=== PATIENT | female | born 1980 | race Caucasian/White ===

== ENCOUNTER → 2024-05-30 | Outpatient (CLI) | payer OTHER, SELFPAY ==
--- NOTE | 2024-05-30 14:06 | US_ITS ---
PROCEDURE: PELVIC W/ TRANSVAGINAL REASON FOR EXAM: Uterine fibroids. TECHNIQUE: Transabdominal and transvaginal pelvic ultrasound COMPARISON: None. FINDINGS: Measurements: Uterus: 10.1 cm x 6.2 cm x 4.7 cm with a volume of 153.25 mL Endometrial Thickness: 4 mm Right Ovary: 1.1 cm x 1.3 cm x 1.1 cm with a volume of 0.77 mL. Left Ovary: 3.7 cm x 3.6 cm x 2.5 cm with a volume of 17.49 mL. TRANSABDOMINAL: Uterus: The uterus is enlarged. 2, fibroids are seen. The larger fibroid measures 3.3 cm x 3.2 cm x 3 cm. Endometrium: Hyperechoic Right ovary: Normal size and echotexture. Left ovary: There is a 2.8 cm x 3 cm x 2.2 cm cyst. No large pelvic mass identified. Transvaginal sonography was performed to better visualize the endometrium. TRANSVAGINAL: Uterus: Anteverted. Uterine fibroids as described. Endometrium: Normal echotexture. Right ovary: Normal size and echotexture. Left ovary: 2.8 cm x 3 cm x 2.2 cm cyst. Other adnexal findings: None. Cul-de-sac: No free intraperitoneal fluid identified. No tenderness. US/Pelvic w/ Transvaginal IMPRESSION: Enlarged fibroid uterus. Left ovarian cyst. Reading Location: [place] [id number]
== END | disposition home or self-care (01) ==
LOC: US 14:03
PROVIDERS: Referring Provider Advanced Practice Midwife; Visit Provider Advanced Practice Midwife
DX: R10.2 Pelvic and perineal pain (principal); D25.9 Leiomyoma of uterus, unspecified
CPT/HCPCS: 76830; 76856

== ENCOUNTER 2024-08-20 05:32 | Day surgery (SDC) | payer OTHER, SELFPAY ==
[2024-08-19 08:00] LABS: Hematocrit 39.9 % (37-47); Hemoglobin 13.7 g/dL (12.0-15.0); Mean Corp Hgb Conc 34.3 g/dL (32-36); Mean Corpuscular Hgb 31.4 pg (27.0-32.0); Mean Corpuscular Volume 91.5 fL (81-99); Mean Platelet Vol. 8.7 fl (6.2-12.0); Platelet Count 303 K/mm3 (150-450); RBC Distribution Width CV 13.2 % (11.6-14.6); RBC Distribution Width SD 44.1 fl (35.1-43.9); Red Blood Count 4.36 M/mm3 (4.2-5.4); White Blood Count 9.3 K/mm3 (4.4-11.0)
[2024-08-19 08:30] LABS: Magnesium 2.4 mg/dL (1.5-2.2)
[2024-08-20] VITALS (11 sets, daily range): BP systolic 107–127; BP diastolic 60–97; PULSE 60–90; RESP 16–18; TEMP 36.1–37.3; O2SAT 98–100; BMI 29.1
[2024-08-20 06:43] LABS: Internal QC Validated? YES +Cl - CLEAR BKGD; Pregnancy, Urine Negative Negative
--- NOTE | 2024-08-20 06:49 | PCM.HP.BLA ---
History and Physical Date of Admission: 08/20/24 Intake Vital Signs 06/24/2508:33 07/18/2512:48 Height 5 ft 2 in 5 ft 2 in Weight: 160 lb 161 lb 2 oz BMI 29.2 29.5 BP 132/89 H 133/91 H Intake Visit Reasons: TRH BS cysto Emotionally Impaired Teacher Required: No Is patient in pain?: No Allergies Penicillins Allergy (Mild, Verified 07/18/24 13:48) Hivesibuprofen Adverse Reaction (Intermediate, Verified 07/18/24 13:48) tachycardiameloxicam (From Mobic) Adverse Reaction (Intermediate, Verified 07/18/24 13:48) tachycardia Medications ?Medication ?Instructions ?Recorded ?Confirmed ?Type cetirizine 10 mg tablet (Zyrtec) 10 mg PO QDAY PRN 06/24/24 07/18/24 History cholecalciferol (vitamin D3) 50 50 mcg PO QDAY 06/24/24 07/18/24 History mcg (2,000 unit) capsule lactobacillus combination no.4 3 3,000 mmu cells PO QDAY 06/24/24 07/18/24 History billion cell capsule (Probiotic) magnesium oxide 500 mg capsule 500 mg PO QDAY 06/24/24 07/18/24 History norethindrone acetate 5 mg tablet 5 mg PO QDAY 06/24/24 07/18/24 History omega-3 fatty acids 1,000 mg 1,000 mg PO QDAY 06/24/24 07/18/24 History capsule valacyclovir 500 mg tablet 500 mg PO QDAY #30 tabs 07/18/24 07/18/24 Rx (Valtrex) Post menopausal: No Patient : No : No PFSH Medical History Fibroid Enlarged uterus Ovarian cyst Genital herpes Surgical History S/P eye surgery Family History Mother Breast cancerFather DiabetesGrandmother Cancer of kidney CVA (cerebral vascular accident) Social History Smoking Status: Former smoker alcohol intake: current details: occasionaly substance use type: does not use caffeine: Yes what type of physical activity do you participate in: aerobics and weight training frequency: 3-4 times per week seatbelt use: always do you feel safe at home: Yes additional social history: - Manuel HPI TRH BS cysto Details: DORITA QUIROS is a 44 year old who is scheduled for a total robotic hysterectomy, bs, cysto due to fibroid uterus that is compressing her tailbone causing low back pain. 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 Due to insurance reasons she was referred over to us. She has tried mirena IUD (cuased worse pain and bleeding), combination ocp's, and now progesterone only ocps, which she takes continuously and does not have periods. She states had an EMB with [facility] , joan Roa. ultrasound is as follows: REASON FOR EXAM: Uterine fibroids. TECHNIQUE: Transabdominal and transvaginal pelvic ultrasound COMPARISON: None. FINDINGS: Measurements: Uterus: 10.1 cm x 6.2 cm x 4.7 cm with a volume of 153.25 mL Endometrial Thickness: 4 mm Right Ovary: 1.1 cm x 1.3 cm x 1.1 cm with a volume of 0.77 mL. Left Ovary: 3.7 cm x 3.6 cm x 2.5 cm with a volume of 17.49 mL. TRANSABDOMINAL: Uterus: The uterus is enlarged. 2, fibroids are seen. The larger fibroid measures 3.3 cm x 3.2 cm x 3 cm. Endometrium: Hyperechoic Right ovary: Normal size and echotexture. Left ovary: There is a 2.8 cm x 3 cm x 2.2 cm cyst. No large pelvic mass identified. Transvaginal sonography was performed to better visualize the endometrium. TRANSVAGINAL: Uterus: Anteverted. Uterine fibroids as described. Endometrium: Normal echotexture. Right ovary: Normal size and echotexture. Left ovary: 2.8 cm x 3 cm x 2.2 cm cyst. Other adnexal findings: None. Cul-de-sac: No free intraperitoneal fluid identified. No tenderness. US/Pelvic w/ Transvaginal IMPRESSION: Enlarged fibroid uterus. Left ovarian cyst History 1 Elective abortions Hx Para 0 Spontaneous abortions 1 Hx # Term Pregnancies Ectopic pregnancies Hx # Pregnancies Multiple births # of living children 0 ROS Const ROS Unobtainable: All systems reviewed & are unremarkable except as noted in H Resp Resp: Reports system reviewed and no additional complaints, except as documented; Denies cough GI GI: Reports as per HPI Psych Psych: Reports system reviewed and no additional complaints, except as documented Exam Const General: cooperative, healthy appearing, comfortable and no acute distress Resp Effort & Inspection: normal respiratory effort Skin General: no rashes or lesions noted Psych Appearance: grossly normal Speech and Movement: speech and movement normal Coding Level of Care Code Off vis,est,level 4 Diagnoses Enlarged uterus N85.2 Fibroid D21.9 Assessment and Plan Assessment and Plan (1) Enlarged uterus: Status: Acute (2) Fibroid: Status: Acute Plan: After discussing the patient's diagnosis and treatment plan options, patient wishes to proceed with surgical management. I have discussed with the patient the risks, benefits, and alternatives of the procedure which include but are not limited to risks of anesthesia, bleeding, infection, possible damage to bowel, bladder, or surrounding vasculature which could lead to additional surgery to evaluate any complications. Patient agrees to procedure and wishes to proceed. ACOG/uptodate references given for additional information regarding procedure. plan total robotic hysterectomy, bs, cysto
--- NOTE | 2024-08-20 06:50 | PCM.DC ---
Discharge Instructions Diet Discharge Diet: No restrictions DC O2, CPAP, BIPAP needs Home O2 Discharge instructions: No Dressing / Incision Discharge Activity: May Shower May resume sexual activity in: 8 weeks Weight Bearing Status: Full weight bearing Lifting Restrictions: 10 pounds for 2 weeks Dressing / Incision Call your doctor if your incision/area has: Continuous Slow Oozing, Sudden Increased Bleeding, Increased Pain/ Swelling, Increased Redness and Foul Smelling Discharge Call your doctor if you observe: Fever of 101 or Higher, Using more than 1 pad per hour, Shortness of breath, Chest pain and Uncontrolled pain Suture Line Care: Avoid Pulling/Pushing and Avoid Pinching/Bending Remove Dressing in: 1 week (if present) Cleanse incision/area with: Soap & Water and Keep Dressing Clean & Dry Follow Up Care Please Follow Up With: Twila Hillman DO When: Call to make an appointment with your doctor for a postop visit in 2 and 6 weeks Test Results: Test results from this visit will be discussed in further detail at your follow-up appointment, if applicable. Discharge Plan Admission Primary Reason for Your Visit: hysterectomy Attending Provider: Twila Hillman Primary Care Provider: Care Physician,No Primary Instructions Print Language: Turkmen Discharge Orders/Prescriptions Prescriptions: New ibuprofen 800 mg tablet 800 mg PO Q8H PRN (Reason: pain) Qty: 30 0RF oxycodone-acetaminophen [Percocet] 5-325 mg tablet 1 tab PO Q4H PRN (Reason: pain) 7 Days Qty: 20 0RF Continued cholecalciferol (vitamin D3) 50 mcg (2,000 unit) capsule 50 mcg PO QDAY Probiotic 3 billion cell capsule 3,000 mmu cells PO QDAY Rx Instructions: administer with a meal omega-3 fatty acids 1,000 mg capsule 1,000 mg PO BID cetirizine [Zyrtec] 10 mg tablet 10 mg PO QDAY magnesium oxide 500 mg capsule 500 mg PO QDAY valacyclovir [Valtrex] 500 mg tablet 500 mg PO QDAY Qty: 30 4RF aspirin 325 mg capsule 325 mg PO Q6H PRN (Reason: pain) acetaminophen [Tylenol] 325 mg tablet 650 mg PO Q4H PRN (Reason: pain) Collagen Plus Vitamin C 125-740 mg capsule 1 cap PO DAILY cimetidine 200 mg tablet 200 mg PO DAILY PRN (Reason: heartburn) Rx Instructions: administer with meals docusate sodium [Colace] 100 mg capsule 100 mg PO DAILY Discontinued norethindrone acetate 5 mg tablet 5 mg PO QDAY Other Ambulatory Orders: ,Urine (Routine) Timeframe: 20240820 Facility: [facility] - Location: Laboratory Ordered By: Dr. Twila Hillman Referrals / Follow Up: Care Physician,No Primary [Primary Care Provider] - Disposition Disposition (needs filled in before D/C Order can be placed): Home, Self Care
[2024-08-20] MEDS: Phenazopyridine 95 MG Tablet 190 MG PO (07:06)
[2024-08-20] MEDS: Celecoxib 200 MG Capsule 400 MG PO (07:07)
[2024-08-20] MEDS: Scopolamine 1mg/72hr Patch 1 PATCH TD (07:07)
[2024-08-20] MEDS: Acetaminophen 500 MG Tablet 1000 MG PO (07:07)
[2024-08-20] MEDS: Gabapentin 600 MG Tablet PO (07:07)
[2024-08-20] MEDS: Magnesium 1 GM over 15 mins IV (07:08)
[2024-08-20] MEDS: Lactated Ringers 1,000 ML 40 ML IV (07:08)
[2024-08-20] MEDS: Clindamycin 900 MG/50 ML BAG 75 MG IV (07:09)
--- NOTE | 2024-08-20 07:21 | PCM.PRE.AN2 ---
ASA Classification* ASA Classification ASA Classification: 2 Assessment & Plan Anesthesia* Anesthesia Assessment Anesthesia Assessment: Discussed sedation and/or anesthesia options, risks, benefits, and alternatives with patient/parents/legal guardian/POA. Questions invited. The patient/parents/legal guardian/POA seems to understand and agrees to proceed with anesthesia plan. Reviewed the physical assessment, medical history, allergy history and patient home medications list prior to surgery/procedure/anesthetic and documented any changes. Performed airway and anesthesia risk assessments. Anesthesia Type Anesthesia Type: General History Source History Obtained from:: Patient and Chart Anesthesia Focused Assessment* Temperature: 98.5 F Pulse Rate: 86 Blood Pressure: 118/85 Respiratory Rate: 16 Pulse Ox: 99 Oxygen Delivery Method: Room Air Airway Assessment Mouth opens: >3 cm Mallampati Score: II Teeth Condition: Intact Neck Range of motion (ROM): Full ROM Focused Labs Anesthesia Preop lab: CBC WBC 9.3 K/mm3 (4.4-11.0) 08/19/24 07:24 08/19/24 RBC 4.36 M/mm3 (4.2-5.4) 08/19/24 07:24 08/19/24 Hgb 13.7 g/dL (12.0-15.0) 08/19/24 07:24 08/19/24 Hct 39.9 % (37-47) 08/19/24 07:24 08/19/24 Plt Count 303 K/mm3 (150-450) 08/19/24 07:24 08/19/24 CHEMISTRY Magnesium 2.4 mg/dL (1.5-2.2) H 08/19/24 07:24 08/19/24 COAG Urine Test Negative Negative 08/20/24 06:00 08/20/24 Pre-Assessment Diagnosis/Proposed Procedure Planned Operative Procedure(s): LAP TOTAL HYSTERECTOMY,BILAT SALPINGECTOMY CYSTO Anesthesia History Anesthesia History - surgical physician assistant: Anesthesia History - surgical physician assistant Hx Hospitalization No 08/06/24 10:01 Any Problems With Anesthesia No 08/06/24 10:01 Cholinesterase deficiency No 08/06/24 10:01 You/Your Family Experience No 08/06/24 10:01 fever (hyperthermia) with Relationship Recent Exposure to Contagious No 08/20/24 06:54 Disease Does patient have nerve No 08/06/24 10:01 stimulator Patient instructed to have device shut off --Does patient have Pacemaker No 08/20/24 06:54 or ICD? When Was Last Pacemaker Check QUESTION #4 FULL TEXT: You/Your Family Experience fever (hyperthermia) with Anesthesia Last Oral Intake Last Oral intake: Last Oral Intake NPO since 05:15 08/20/24 06:54 Meds taken in AM with sips of water? Meds patient instructed to take am of surgery PONV PONV - surgical physician assistant: PONV - surgical physician assistant Female Yes 08/06/24 10:01 HX of Motion Sickness Yes 08/06/24 10:01 HX of N/V After Surgery No 08/06/24 10:01 Non-Smoker Yes 08/06/24 10:01 Duration of Surgery greater Yes 08/06/24 10:01 than 60 minutes Number of Risk Factors 4 08/06/24 10:01 PONV Score Severe Risk 08/06/24 10:01 Height & Weight Height & Weight: Anesthesia: Height & Weight Height 5 ft 2 in 08/20/24 06:54 Weight: 72.2 kg 08/20/24 06:54 Body Mass Index (BMI) 29.1 08/20/24 06:54 Respiratory Assessment Respiratory Assessment - surgical physician assistant: Respiratory Tract Infection Hx - surgical physician assistant Hx Respiratory Tract Infection No 08/06/24 10:01 STOP Sleep Apnea STOP Sleep Apnea - surgical physician assistant: STOP Sleep Apnea - surgical physician assistant Hx Hypertension No 08/06/24 10:01 Hx Sleep Apnea No 08/06/24 10:01 CPAP BIPAP Do you snore loudly (louder No 08/06/24 10:01 than talking or can be heard Do you often feel tired/ No 08/06/24 10:01 fatigued/ sleepy during daytime? Has anyone observed you stop No 08/06/24 10:01 breathing during sleep? STOP Results Negative 08/06/24 10:01 QUESTION #5 FULL TEXT : Do you snore loudly (louder than talking or can be heard through closed doors)? Tobacco Use History Tobacco Use History - surgical physician assistant: Tobacco Use History - surgical physician assistant Tobacco Use Smoking Status Former smoker 08/06/24 10:01 Hx Tobacco Use No 08/06/24 10:01 Years Smoking Packs Smoked per Day Smoking Cessation Date was No - quit smoking greater 08/06/24 10:01 within the last 15 years than 15 years ago Hx Smoking Cessation Date 04/10/04 08/06/24 10:01 Hx Smoking Cessation No 08/06/24 10:01 Counseling Hematologic Medial History Hematologic Hx - surgical physician assistant: Hematologic Medical Hx - ophthalmic asst Hx of Blood Transfusion No 08/06/24 10:01 Hx of Transfusion in last 3 No 08/06/24 10:01 Months Date of Last Transfusion (if within last 3 months) Ever experience any problems No 08/06/24 10:01 with transfusion(s)? Specify any problems Hx of Preganancy in last 3 No 08/06/24 10:01 Months Nurse Filling Out Transfusion DSCHRIBER 08/06/24 10:01 & Questions: Date: 08/06/24 08/06/24 10:01 Time: 10:02 08/06/24 10:01 Patient unable to answer at this time (ie. confused, unrespo /Reproduction History /Reproductive History - surgical physician assistant: /Reproductive Hx- surgical physician assistant Hx Now No 08/06/24 10:01 Gestational Age (in weeks): EDC: Hx Hx Para Hx Section SAB No 08/06/24 10:01 Active Medications Active Medications: Current Medications Generic Name Dose Route Start Last Admin Trade Name Freq PRN Reason Stop Dose Admin Acetaminophen 1,000 mg 08/20/24 07:30 Acetaminophen 500 Mg Tablet PO 08/20/24 07:31 PREOP ONE Celecoxib 400 mg 08/20/24 07:30 Celecoxib 200 Mg Capsule PO 08/20/24 07:31 PREOP ONE Gabapentin 600 mg 08/20/24 07:30 Gabapentin 600 Mg Tablet PO 08/20/24 07:31 PREOP ONE Lactated Ringer's 1,000 mls @ 40 mls/hr 08/20/24 07:30 IV .Q25H [id number] Clindamycin Phosphate 900 mg in 50 mls @ 75 mls/hr 08/20/24 07:30 Cleocin IV 08/20/24 08:09 INTRAOP ONE Gentamicin Sulfate 296 mg/ 57.4 mls @ 100 mls/hr 08/20/24 07:30 Dextrose IV 08/20/24 08:04 INTRAOP ONE Lactated Ringer's 1,000 mls @ 70 mls/hr 08/20/24 07:30 IV .[id number] Magnesium Sulfate 1 gm/ 102 mls @ 408 mls/hr 08/20/24 07:30 Dextrose IV 08/20/24 07:44 INTRAOP ONE Insulin Human Lispro 0 unit 08/20/24 07:30 Insulin Lispro 100 Unit/Ml Insuln.Pen SC Q4H PRN PRN BG >/= 180, SEE PROTOCOL Protocol Ondansetron HCl 4 mg 08/20/24 07:30 Ondansetron 4 Mg/2 Ml Vial IV 08/20/24 07:31 INTRAOP ONE Phenazopyridine HCl 190 mg 08/20/24 07:30 Phenazopyridine 95 Mg Tablet PO 08/20/24 07:31 PREOP ONE Scopolamine HBr 1 patch 08/20/24 07:30 Scopolamine 1mg/72hr Patch TD 08/20/24 07:31 PREOP ONE PFSH Medical History Mycosis fungoides Marijuana use Alcohol use Restless legs Injury of back Back pain Constipation Heartburn Former smoker History of irregular heartbeat Heart murmur Ovarian cyst Enlarged uterus Fibroid Genital herpes Home Medications ?Medication ?Instructions ?Recorded ?Last Taken ?Type cetirizine 10 mg tablet (Zyrtec) 10 mg PO QDAY ALLERGIES 06/24/24 08/19/24 History cholecalciferol (vitamin D3) 50 50 mcg PO QDAY 06/24/24 08/19/24 History mcg (2,000 unit) capsule lactobacillus combination no.4 3 3,000 mmu cells PO QDAY 06/24/24 08/19/24 History billion cell capsule (Probiotic) magnesium oxide 500 mg capsule 500 mg PO QDAY 06/24/24 08/19/24 History omega-3 fatty acids 1,000 mg 1,000 mg PO BID 06/24/24 Unknown History capsule valacyclovir 500 mg tablet 500 mg PO QDAY #30 tabs 07/18/24 Unknown Rx (Valtrex) acetaminophen 325 mg tablet 650 mg PO Q4H PRN pain 08/06/24 Unknown History (Tylenol) ascorbic acid 125 mg-collagen, 1 cap PO DAILY 08/06/24 08/19/24 History hydrolyzed 740 mg capsule (Collagen Plus Vitamin C) aspirin 325 mg capsule 325 mg PO Q6H PRN pain 08/06/24 08/13/24 History cimetidine 200 mg tablet 200 mg PO DAILY PRN heartburn 08/06/24 08/20/24 History docusate sodium 100 mg capsule 100 mg PO DAILY 08/06/24 08/19/24 History (Colace) ibuprofen 800 mg tablet 800 mg PO Q8H PRN pain #30 tabs 08/20/24 Unknown Rx oxycodone-acetaminophen 5 mg-325 1 tab PO Q4H PRN pain 7 days #20 08/20/24 Unknown Rx mg tablet (Percocet) tabs Allergy/AdvReac Type Severity Reaction Status Date / Time Penicillins Allergy Mild Hives Verified 08/06/24 09:55 ibuprofen AdvReac Intermediate tachycardia Verified 08/06/24 09:55 meloxicam (From Mobic) AdvReac Intermediate tachycardia Verified 08/06/24 09:55 Family History Mother Breast cancer Father Diabetes Grandmother Cancer of kidney CVA (cerebral vascular accident) Surgical History Hx of wisdom tooth extraction S/P eye surgery Social History Smoking Status: Former smoker alcohol intake: current details: occasionaly substance use type: does not use caffeine: Yes what type of physical activity do you participate in: aerobics and weight training frequency: 3-4 times per week seatbelt use: always do you feel safe at home: Yes additional social history: - Manuel Review of Systems (Anesthesia) ROS Narrative System reviewed and no additional complaints, except as documented. Physical Exam Resp normal respiratory effort Cardio regular rate and regular rhythm Back/Spine normal ROM Neuro oriented x3 and moves all extremities
[2024-08-20] MEDS: WATER IV (07:30)
[2024-08-20] MEDS: DEXTROSE 5% IV (07:30)
[2024-08-20] MEDS: GENTAMICIN IV (07:30)
--- NOTE | 2024-08-20 07:30 | UT_PTH ---
PATIENT: DORITA QUIROS LOC: [facility] [place] U#:[id number] AGE/SX: 44/F ROOM: RE08/20/[address]: Dr. Twila Hillman DO : 1980 BED: DIS: 08/20/2024 SPEC #: [id number] RECD: 08/20/24 10:48 STATUS: SATNAM ANA #: [id number] CYDNEY: 08/20/24 07:[address]: Twila Hillman DEPT: SURGICAL PATHOLOGY RECD BY: Ruben Arias ENTERED: 08/20/24 11:04 SP TYPE: UTERUS OTHR DR: No Primary Care Phys Tissues: A - Uterus, NOS B - Labium, NOS Procedures: Surgery Specimen Level IV Surgery Specimen Level V HEADER OPERATION: Laparoscopic total robotic hysterectomy, bilateral salpingectomy, cystoscopy, right labia biopsy PRE-OP DIAGNOSIS: Enlarged uterus, fibroid TISSUE SUBMITTED: A- Uterus, cervix, bilateral fallopian tubes, B- Right labia biopsy MICROSCOPIC DIAGNOSIS A. Uterus, cervix, bilateral fallopian tubes, hysterectomy and bilateral salpingectomy: * Cervix: Benign squamous epithelium and endocervical glandular tissue * Endometrium: Inactive endometrium * Myometrium: Leiomyomata (intramural, submucosal, and subserosal) * Bilateral fallopian tubes: Benign fallopian tubes with benign paratubal cyst B. Skin, right labia, shave biopsy: * Intradermal melanocytic nevus MICROSCOPIC DESCRIPTION Slides are reviewed. GROSS DESCRIPTION A. Received in formalin in a container labeled with the patient's name, date of , and uterus, cervix, bilateral fallopian tubes is a hysterectomy specimen with attached cervix and bilateral attached fimbriated fallopian tubes. The fallopian tubes are amputated, and the uterus is 139.4 g and 9.7 cm from fundus to ectocervix, 6.0 cm from cornu to cornu, and 5.8 cm from anterior to posterior. The serosa is baltazar-pink, smooth, and glistening with multiple underlying possible subserosal nodules. The previously disrupted baltazar-pink ectocervix is 3.3 x 2.9 cm with a 1.0 cm slitlike os. The specimen is bivalved to reveal a 3.5 cm in length by 1 cm in diameter endocervical canal with multiple nabothian cysts measuring up to 0.5 cm in greatest dimension. The linear endometrial cavity measures 2.6 cm in length by 0.7 cm in width. The posterior endometrial cavity is notable for a 0.8 x 0.8 x 0.6 cm baltazar-pink possible polyp which appears confined to the mucosa. The red-baltazar, smooth endometrium is 0.1 cm in thickness. The baltazar-pink myometrium exhibits a nodular and coarse trabecular pattern measuring up to 2.7 cm in thickness. There are multiple baltazar-pink, intramural, submucosal, and subserosal myometrial nodules within the anterior and posterior myometrium ranging from 0.6 x 0.5 x 0.5 cm to 3.2 x 3.0 x 2.5 cm. The largest 2 nodules exhibit a leaf-like pattern, and the remaining are baltazar-pink and whorled. No hemorrhage or necrosis is identified. The right fimbriated fallopian tube is 4 cm in length by 0.6 cm in diameter, and the left fimbriated fallopian tube is 4.5 x 0.6 cm. The serosa and fimbriated ends of each are within normal limits. Sectioning of each reveals a pinpoint lumen. Mash Grinder sections:A1. Anterior cervix with anterior serosal shavesA2. Posterior cervix with posterior serosal shavesA3. Anterior endomyometrium with nodules (superficial sections)A4. Posterior full-thickness section with possible polypA5. Remainder of posterior polyp with superficial endomyometrium with nodulesA6-7. Sampled myometrial nodulesA8. Right fallopian tubeA9. Left fallopian tube B. Received in formalin in a container labeled with the patient's name, date of , and right labia biopsy is an unoriented and irregular skin shave measuring 1.0 x 0.3 cm with a depth of 0.1 cm. The baltazar-pink epidermis is notable for a white-baltazar and rubbery nodule measuring 0.7 x 0.5 x 0.4 cm, focally abutting the peripheral margin. The deep resection margin is inked green, and it is trisected to reveal that the nodule exhibits homogenous baltazar and glistening surfaces that abut the deep margin. Submitted entirely in B1. [facility] 08-20-2024 CPT:64007,73061
[2024-08-20 07:35] LABS: Bedside Glucose 120 mg/dL (74-106)
[2024-08-20] MEDS: Bupivacaine 0.25% 30 ML Vial (08:00)
--- NOTE | 2024-08-20 09:02 | PCM.OPRPT ---
Problems Associated Problem List Diagnoses (1) Enlarged uterus: (2) Fibroid: Multi Select Codes Urinary/Genital Urinary/Genital CPT Codes: 49785 Cystoscopy and 87270 TLH+BS/O <250gr uterus Operative Report (Standard) Operative Information Date of Procedure: 08/20/24 Pre-Operative Diagnosis: fibroid uterus, low back pain, menorrhagia Post-Operative Diagnosis: fibroid uterus, low back pain, menorrhagia, right labial skin tag Surgery/Procedure Performed: total robotic hysterectomy, bilateral salpingectomy, cystoscopy, removal of right labial skin tag manager quantitative: Yes Dental Assisting Instructor: Kia Stewart Tasks completed by bindery library technical assistant: Closing, Trocar, Retracting and Other (irrigation ) Additional drilling assistant?: No Type of Anesthesia: General RN Documented Start/Stop Times: Operation Date: 08/20/24 07:30 Case Time Into Pre-Op 08/20/24 05:44 Out of Pre-Op 08/20/24 07:27 Anesthesia Start 08/20/24 07:30 Into Room 08/20/24 07:30 Procedure Start 08/20/24 08:08 Procedure Start Time: 08:08 Procedure Stop Time: 09:05 Select all DRAINS/GRAFTS/IMPLANTS that apply: None Estimated Blood Loss: 10cc Specimen collected: Yes Description of specimen(s) removed: uterus, cerivx, bilateral fallopian tubes,. right labial skin tag Description of surgery: Reason for surgery: This is a 44-year-old G1,0 who presented to my office with history of low back pain, fibroid uterus, and menorrhagia. The planned procedure is for a robotic hysterectomy the risks benefits and alternatives were discussed with the patient the patient had a clear understanding of the procedure and a consent form was signed. Procedure: The patient was placed in the dorsal low lithotomy position and prepped and draped in the normal sterile fashion both abdominally and in the perineum. Her legs were placed in stirrups a Engel catheter was inserted into the urethra without difficulty. A right labial skin tag was noted. This was grasped with pick ups and excised using eckert scissors and reapproximated with 2 interrupted figure of 8 4-0 monocryl suture. A weighted speculum was placed in the vagina and a single-tooth tenaculum was used to grasp the anterior lip of the cervix. An 48domain uterine manipulator was inserted through the cervix without complication. It was then tied into place at the 2 and 10:00 locations on the cervix. Gloves were changed and attention was turned towards the abdomen. Approximately 23 cm above the pubic symphysis in the midline, and after Marcaine injection, a 8 mm incision was made. An 8 mm trocar was inserted through the laparoscope, then inserted into the abdomen under direct visualization using the laparoscope. Good abdominal placement was noted and no complications were appreciated. An air seal device was utilized to create pneumoperitoneum. At 12 cm lateral to the midline on the left and right sides 8 mm accessory ports were placed. Next a left upper quadrant 8 mm drilling assistant port site was placed. The patient was placed in steep Trendelenburg position. The robot was docked. The uterus was noted to be enlarged with a posterior intramural fibroid occupying the posterior cul-de-sac. The hysterectomy was initiated first by taking down the round ligament on each side using the vessel sealer device. the broad ligament was then and taken down using the vessel sealer device. Next the bladder flap was taken down without complication. This was done using monopolar cautery to the level of the cervical vaginal junction. After the bladder flap was created, uterine vessels were then isolated and cauterized using the vessel sealer device and EndoShears. At this point the uterine vessels were taken down further starting from the ascending branch, dissecting along the edges of the cervix to the level of the cervical vaginal junction with hemostasis appreciated. The cervical vaginal junction was then using monopolar cautery in a circumferential pattern across the superior aspect of the cervix. The specimen was delivered through the vagina and sent to pathology. The remaining vaginal cuff was then closed using a V lock suture. This was performed in a running technique. Excellent hemostasis was obtained and good closure was noted. Irrigation was then performed. All operative sites were noted to be hemostatic. A cystoscopy was performed with a 70 degree cystoscope through the urethra into the bladder without complication. The bladder was instilled with approximately 250 cc of normal saline. Intraoperative images were made. Ureteral orifices and jets were identified. No suture material was appreciated in the bladder. The bladder was then drained and cystoscope was removed. The abdominal cavity was again examined using the laparoscope after the robot was undocked. All operative sites were noted to be hemostatic. The trochars were removed under direct visualization without complication and pneumoperitoneum was reduced. At this point the skin was then closed using 4-0 Monocryl subcuticular stitch and sealed with surgical glue. The patient tolerated the procedure well sponge lap and needle counts were correct x2 the patient was taken to the recovery room in stable condition. Surgical Findings: enlarged fibroid uterus, right labial skin tag. Normal fallopian tubes. Nabothian cysts on the cervix. Complications Complications: No Admit VTE Documentation VTE Present on Admission: No VTE Mechan Device Prophylaxis: SCD's VTE Pharm Prophylaxis ordered?: No
--- NOTE | 2024-08-20 09:21 | PCM.POST.ANE ---
Anesthesia: Postop Eval I Current Vital Signs Temperature: 97 F Pulse Rate: 80 Blood Pressure: 110/60 Respiratory Rate: 18 Pulse Ox: 100 Oxygen Delivery Method: Room Air Assessment Airway patent: Yes Spontaneous unlabored respirations: Yes Mental status: Awake nausea: No Vomiting: No Anesthesia Complication: No Fluid Hydration Crystalloid volume administer (ml): 1,000 Total IV fluid infused: 1,000 Progress Note Anesthesia document: Postop Eval 1 completed: Yes
--- NOTE | 2024-08-20 10:13 | POSTOPAN2_ITS ---
Anesthesia Postop Eval I Sum Postop Eval Completion status Anesthesia document: Postop Eval 1 completed: Yes Anesthesia Postop Eval I Summary Anesthesia Postop Eval I Summary: Anesthesia Postop Eval I: Assessment Summary Airway patent Yes 08/20/24 09:22 LABORATORY [email or web address] Spontaneous unlabored Yes 08/20/24 09:22 LABORATORY [email or web address] respirations Mental status Awake 08/20/24 09:22 LABORATORY [email or web address] nausea No 08/20/24 09:22 LABORATORY [email or web address] Vomiting No 08/20/24 09:22 LABORATORY [email or web address].[email or web address] Anesthesia Postop Eval I: Fluid Summary Crystalloid volume administer 1,000 08/20/24 09:22 LABORATORY [email or web address] (ml) Colloids volume administered ( ml) Blood Product volume administered (ml) Total IV fluid infused 1,000 08/20/24 09:22 LABORATORY [email or web address].[email or web address] Anesthesia Postop Eval I: Summary Notes Anesthesia Complication No 08/20/24 09:22 LABORATORY [email or web address].[email or web address] Anesthesia Complication Comment: Post-operative progress note Anesthesia: Postop Eval II Evaluation Mental status: Awake and Calm Pain Level: 3 nausea: No Vomiting: No Complications Anesthesia Complication: No
--- NOTE | 2024-08-20 10:13 | PCM.POSTANE2 ---
Anesthesia Postop Eval I Sum Postop Eval Completion status Anesthesia document: Postop Eval 1 completed: Yes Anesthesia Postop Eval I Summary Anesthesia Postop Eval I Summary: Anesthesia Postop Eval I: Assessment Summary Airway patent Yes 08/20/24 09:22 ENGINEERING [email or web address] Spontaneous unlabored Yes 08/20/24 09:22 ENGINEERING TECHNICIAN.[email or web address] respirations Mental status Awake 08/20/24 09:22 ENGINEERING [email or web address] nausea No 08/20/24 09:22 ENGINEERING [email or web address] Vomiting No 08/20/24 09:22 ENGINEERING TECHNICIAN.JARRET Anesthesia Postop Eval I: Fluid Summary Crystalloid volume administer 1,000 08/20/24 09:22 ENGINEERING [email or web address] (ml) Colloids volume administered ( ml) Blood Product volume administered (ml) Total IV fluid infused 1,000 08/20/24 09:22 ENGINEERING TECHNICIAN.[email or web address] Anesthesia Postop Eval I: Summary Notes Anesthesia Complication No 08/20/24 09:22 ENGINEERING TECHNICIAN.JARRET Anesthesia Complication Comment: Post-operative progress note Anesthesia: Postop Eval II Evaluation Mental status: Awake and Calm Pain Level: 3 nausea: No Vomiting: No Complications Anesthesia Complication: No
[2024-08-20] MEDS: oxyCODONE 5 MG Tablet PO (11:20)
== END 2024-08-20 12:52 | disposition home or self-care (01) ==
LOC: SDC 05:33 → AC 05:34
PROVIDERS: Anesthesiology; Referring Provider Obstetrics & Gynecology; Visit Provider Obstetrics & Gynecology
PROC: 0UT90ZZ Resection of Uterus, Open Approach (ICD-10-PCS; CPT 58571; principal; 2024-08-20 07:10)
DX: D28.0 Benign neoplasm of vulva (principal); D25.1 Intramural leiomyoma of uterus; D25.0 Submucous leiomyoma of uterus; D25.2 Subserosal leiomyoma of uterus; N88.8 Other specified noninflammatory disorders of cervix uteri; N92.0 Excessive and frequent menstruation with regular cycle; N83.8 Other noninflammatory disorders of ovary, fallopian tube and broad ligament; Z87.891 Personal history of nicotine dependence; Z79.82 Long term (current) use of aspirin
CPT/HCPCS: 58571; S2900; 11200; 00840; 36415; 81025; 82962; 83735; 85027; 86850; 86900; 86901; 88305; 88307; J2405; J3475

== ENCOUNTER → 2024-09-06 | Outpatient (CLI) | payer OTHER, SELFPAY | END | disposition home or self-care (01) | LOC: LABSPEC 14:53 | PROVIDERS: Referring Provider Obstetrics & Gynecology; Visit Provider Obstetrics & Gynecology | DX: R10.31 Right lower quadrant pain (principal) | CPT/HCPCS: 87086; 87088 ==